=== PATIENT | male | born 1980 | race Caucasian/White ===

== ENCOUNTER 2022-09-07 05:34 | Outpatient (CLI) | payer BC | END 2022-09-07 05:35 | disposition home or self-care (01) | LOC: RT 05:34 | PROVIDERS: ATTEND Naturopath | DX: I49.9 Cardiac arrhythmia, unspecified (principal) | CPT/HCPCS: 93005 ==

== ENCOUNTER 2022-09-07 06:12 | Emergency (ER) | payer BC ==
--- NOTE | 2022-09-07 06:25 | ED Physician Documentation ---
History of Present Illness - Stated complaint Stated Complaint: ABNORMAL EKG - Chief complaint Chief Complaint: Cardiac - History obtained from History obtained from: Patient - Additonal information Additional information: HPI from patient. Patient is asymptomatic. Patient was having an outpatient EKG performed in [facility] shortly before this H+P. There were abnormalities that caught the attention of the tech performing the EKG and thus it (the EKG) was brought to my attention. The EKG shows ST elevations in an inferolateral distribution. I advised patient to check in to the ED, which he does. Patient says he saw his PMD recently for a scheduled, routine check up. He was, and is, having no symptoms/signs. He says his doctor ordered this outpatient EKG because there was concern of some sort of irregularity on cardiac (stethoscopic) auscultation. 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 He denies chest pain, dyspnea. No past medical history, no immediate family history of [place], CVA. Patient takes no medications, has no medication allergies. Review of Systems Cardiac: reports: Reviewed and negative Respiratory: reports: Reviewed and negative GI: reports: Reviewed and negative Musculoskeletal: denies: Extremity swelling PD PAST MEDICAL HISTORY - Past Medical History Past Medical History: No - Past Surgical History Past Surgical History: No - Present Medications Home Medications: Ambulatory Orders Medication Instructions Recorded Confirmed Multivitamin 1 tab PO DAILY 09/07/22 09/07/22 - Allergies Allergies/Adverse Reactions: Allergies Allergy/AdvReac Type Severity Reaction Status Date / Time No Known Drug Allergies Allergy Verified 09/07/22 06:22 - Social History Does the pt smoke?: No Does the pt drink ETOH?: No Does the pt have substance abuse?: No PD ED PE NORMAL - Vitals Vital signs reviewed: Yes - General General: Alert and oriented X 3, No acute distress, Well developed/nourished - Cardiac Cardiac: RRR, No murmur - Respiratory Respiratory: No respiratory distress, Clear bilaterally - Abdomen Abdomen: Soft, Non tender Results - Vitals Vitals: Oxygen O2 Source Room air - EKG (time done) No standard instances EKG releavant findings:: EKG personally interpreted by author of this note. Relevant findings are: Rate: Rate (enter#) (59) Rhythm: NSR [place]: Normal Intervals: Normal IA QRS: Normal Ischemia: ST elevation c/w repol (V3-V6, II, III, aVF) Compare to prior EKG: Old EKG unavailable - Labs Labs: Laboratory Tests 09/07/22 09/07/22 09/07/22 06:15 06:15 06:15 WBC 4.5 L RBC 4.14 L Hgb 12.2 L Hct 37.0 L MCV 89.4 MCH 29.5 MCHC 33.0 RDW 13.1 Plt Count 177 MPV 9.2 Neut # (Auto) 1.7 Lymph # (Auto) 2.3 [place] # (Auto) 0.4 Eos # (Auto) 0.1 Baso # (Auto) 0.0 Absolute Nucleated RBC 0.00 Nucleated RBC % 0.0 Sodium 137 Potassium 3.8 Chloride 104 Carbon Dioxide 26 Anion Gap 7.0 BUN 24 H Creatinine 0.7 Estimated GFR (MDRD) 124 Glucose 116 H Calcium 8.7 Troponin I High Sens 3.1 - Rads (name of study) chest xray Relevant Findings:: Prelim report reviewed, See rad report PD Medical Decision Making - ED course Complexity details: reviewed results, re-evaluated patient, considered differential, d/w patient ED course: EKG has inferolateral ST elevations, concerning for possible AMI. However, he is asymptomatic, has no apparent cardiac risk factors, and there are no reciprocal changes on EKG. I transmitted copy of the EKG to on-call cardiology for [facility] (Dr. Chapman), he interprets the EKG as early repolarization and thus this asymptomatic patient can be discharged and f/u with PMD. No remarkable/concerning/diagnostic findings on tonight's other tests including CXR (borderline heart size), CBC (insignificantly low WBC, h/h), ER abdominal panel (mildly elevated BUN (24) to normal creatinine (0.7), with normal GFR. Results d/w patient. Instructed to follow up with PMD for reevaluation. Departure - Departure Disposition: 01 Home, Self Care Clinical Impression: Abnormal EKG Condition: Good Instructions: ED Symptoms No Dx Follow-Up: Joselin Tinajero ND [Primary Care Provider] - Comments: There were no concerning or diagnostic findings on tonight's blood tests. Similarly, the chest x-ray had no remarkable findings. The abnormal findings on the EKG at this point appear most likely to be a benign variation that is often seen in particularly athletic, younger people called early repolarization. As we discussed, you had very slight and insignificant abnormalities on your blood tests. Your white blood cell count was slightly below the normal range, your red blood cell count was also slightly below normal range. Neither of these findings would cause any symptoms nor is a cause for concern; your primary care provider can reevaluate the abnormalities found on today's testing. Discharge Date/Time: 09/07/22 07:58
[2022-09-07] MEDS ORDERED: ASPIRIN CHEW 81 MG TABLET PO STA (06:26)
[2022-09-07 06:30] LABS: BASOPHILS % (AUTO) 0.7 %; EOSINOPHILS # (AUTO) 0.1 10^3/uL (0.0-0.7); EOSINOPHILS % (AUTO) 2.4 %; HGB - HEMOGLOBIN 12.2 g/dL (14.0-18.0); LYMPHOCYTES # (AUTO) 2.3 10^3/uL (1.5-3.5); LYMPHOCYTES % (AUTO) 50.7 %; MEAN CORPUSCULAR HEMOGLOBIN 29.5 pg (27.0-31.0); MEAN CORPUSCULAR VOLUME 89.4 fL (80.0-94.0); MEAN PLATELET VOLUME 9.2 fL (7.4-11.4); MONOCYTES # (AUTO) 0.4 10^3/uL (0.0-1.0); MONOCYTES % (AUTO) 8.8 %; NEUTROPHILS # (AUTO) 1.7 10^3/uL (1.5-6.6); NEUTROPHILS % (AUTO) 37.2 %; PLT - PLATELET COUNT 177 10^3/uL (130-450); RED BLOOD COUNT 4.14 10^6/uL (4.70-6.10); RED CELL DISTRIBUTION WIDTH 13.1 % (12.0-15.0); WHITE BLOOD COUNT 4.5 x10^3/uL (4.8-10.8)
[2022-09-07 06:46] LABS: CALCIUM 8.7 mg/dL (8.5-10.3); CREATININE 0.7 mg/dL (0.6-1.2); POTASSIUM 3.8 mmol/L (3.5-5.0)
[2022-09-07 07:36] VITALS: BP 132/72
--- NOTE | 2022-09-07 08:03 | XRAY Report ---
PROCEDURE: Chest 1 View X-Ray INDICATIONS: abnormal EKG TECHNIQUE: One view of the chest was acquired. COMPARISON: None. FINDINGS: Surgical changes and devices: None. Lungs and pleura: No pleural effusions or pneumothorax. Lungs are clear. Mediastinum: Mediastinal contours appear normal. Heart size is normal. Bones and chest wall: No suspicious bony lesions. Overlying soft tissues appear unremarkable. IMPRESSION: No acute cardiopulmonary disease. No significant discrepancy with the preliminary interpretation. Reviewed by: Jannie Haynes MD on 09/07/2022 8:01 AM PDT Approved by: Jannie Haynes MD on 09/07/2022 8:01 AM PDT Station ID: [id number]
== END 2022-09-07 07:58 | disposition home or self-care (01) ==
LOC: ED 06:12
DX: R94.31 Abnormal electrocardiogram [ECG] [EKG] (principal)
CPT/HCPCS: 36415; 71045; 80048; 84484; 85025; 99283; 99284; A9270